=== PATIENT | female | born 1960 | race Caucasian/White ===

== ENCOUNTER 2021-08-13 13:07 | Emergency (ER) | payer BC ==
[~2021-08-13] VITALS: Ht 165.1 cm; Wt 74.0 kg
[2021-08-13] MEDS ORDERED: IV NORMAL SALINE 1,000ML 1,000 ML IV SCH (13:30)
--- NOTE | 2021-08-13 13:34 | PHYS DOC ---
Past History Additional Past Medical Histor: ABD ADHESIONS; CHRONIC PAIN (SUHA THOMPSON APRN) Past Surgical History: Hysterectomy, Oophorectomy, Other Additional Past Surgical Histo: CARDIAC STENT; BILAT HIP REPLACEMENT; BILAT WRIST CYST; PARTIAL PARATHYROID (SUHA THOMPSON APRN) Alcohol Use: Occasionally (SUHA THOMPSON APRN) General Adult EDM: Chief Complaint: ABDOMINAL PAIN HPI: HPI: -year-old female who presents to the emergency department for left lower quadrant abdominal pain that started 4 days ago. She rates her pain 7 out of 10. She states that she is taken laxatives, stool softeners and tramadol at home for the pain. Patient does have a history of chronic abdominal pain and was told that the abdominal pain is due to adhesions from multiple abdominal surgeries for her PCOS. Patient reports that her last bowel movement was yesterday and it was watery. She denies nausea, vomiting, diarrhea, sick exposures, back pain, fevers, travel, blood in her stools or vomit, urinary symptoms. (SUHA THOMPSON APRN) Review of Systems: Review of Systems: Constitutional: See HPI GI: See HPI : See HPI Musculoskeletal: See HPI (SUHA THOMPSON APRN) Allergies: Allergies: Allergies Coded Allergies Type Severity Reaction Last Updated Verified codeine Allergy Unknown Nausea and Vomiting 08/13/21 Yes (SUHA THOMPSON APRN) Physical Exam: PE: Constitutional: Well developed, well nourished, no acute distress, non-toxic appearance. [] HENT: Normocephalic, atraumatic, bilateral external ears normal, oropharynx moist, no oral exudates, nose normal. [] Eyes: PERRL, EOMI, conjunctiva normal, no discharge. [] Neck: Normal range of motion, no stridor Cardiovascular:Heart rate regular rhythm, no murmur [] Lungs & Thorax: Bilateral breath sounds clear to auscultation [] Abdomen: Bowel sounds normal, soft, generalized abdominal tenderness with palpation, no masses, no pulsatile masses. [] Skin: Warm, dry, no erythema, no rash. [] Back: No tenderness, no CVA tenderness. [] Extremities: No tenderness, no cyanosis, no clubbing, ROM intact, no edema. [] Neurologic: Alert and oriented X 3, normal motor function, normal sensory function, no focal deficits noted. [] Psychologic: Affect normal, judgement normal, mood normal. [] (SUHA THOMPSON APRN) Current Patient Data: Labs: Laboratory Tests Test 08/13/21 13:45 White Blood Count 13.1 x10^3/uL Red Blood Count 4.61 x10^6/uL Hemoglobin 14.0 g/dL Hematocrit 42.6 % Mean Corpuscular Volume 92 fL Mean Corpuscular Hemoglobin 30 pg Mean Corpuscular Hemoglobin Concent 33 g/dL Red Cell Distribution Width 13.1 % Platelet Count 199 x10^3/uL Neutrophils (%) (Auto) 79 % Lymphocytes (%) (Auto) 13 % Monocytes (%) (Auto) 8 % Eosinophils (%) (Auto) 0 % Basophils (%) (Auto) 0 % Neutrophils # (Auto) 10.4 x10^3uL Lymphocytes # (Auto) 1.7 x10^3/uL Monocytes # (Auto) 1.0 x10^3/uL Eosinophils # (Auto) 0.0 x10^3/uL Basophils # (Auto) 0.0 x10^3/uL Sodium Level 135 mmol/L Potassium Level 3.9 mmol/L Chloride Level 98 mmol/L Carbon Dioxide Level 30 mmol/L Anion Gap 7 Blood Urea Nitrogen 20 mg/dL Creatinine 1.1 mg/dL Estimated GFR (Cockcroft-Gault) 50.2 BUN/Creatinine Ratio 18 Glucose Level 114 mg/dL Calcium Level 9.5 mg/dL Total Bilirubin 0.9 mg/dL Aspartate Amino Transf (AST/SGOT) 20 U/L Alanine Aminotransferase (ALT/SGPT) 22 U/L Alkaline Phosphatase 79 U/L Total Protein 6.3 g/dL Albumin 3.4 g/dL Albumin/Globulin Ratio 1.2 Lipase 66 U/L Current Medications Medications (Trade) Dose Ordered Sig/Haydee Route PRN Reason Start Time Stop Time Status Last Admin Dose Admin Sodium Chloride 1,000 ml @ 1,000 mls/hr Q1H IV 08/13/21 13:30 08/13/21 14:29 DC 08/13/21 14:00 Fentanyl Citrate (Fentanyl 2ml Vial) 50 mcg 1X ONCE IVP 08/13/21 13:30 08/13/21 13:32 DC Iohexol (Omnipaque 300 Mg/ml) 75 ml 1X ONCE IV 08/13/21 13:45 08/13/21 13:46 DC 08/13/21 13:49 Info (Do NOT chart on this entry -- for MONITORING) 1 each PRN DAILY PRN MC SEE COMMENTS 08/13/21 13:45 08/15/21 13:44 Vital Signs: Vital Signs Date Time Temp Pulse Resp B/P (MAP) Pulse Ox O2 Delivery O2 Flow Rate FiO2 08/13/21 13:17 97.6 66 18 111/66 (81) 97 Room Air (SUHA THOMPSON APRN) EKG: EKG: [] (SUHA THOMPSON APRN) Radiology/Procedures: Radiology/Procedures: []PROCEDURE: CT ABD PELV W/ IV CONTRST ONLY EXAM: Abdomen and pelvis CT with intravenous contrast. HISTORY: Left lower quadrant pain. TECHNIQUE: Computed tomographic images of the abdomen and pelvis were obtained following the administration of intravenous contrast. Multiplanar reformatting was performed. *One or more of the following individualized dose reduction techniques were utilized for this examination: 1. Automated exposure control. 2. Adjustment of the mA and/or kV according to patient size. 3. Use of iterative reconstruction technique. COMPARISON: None. FINDINGS: Evaluation of the lower thorax demonstrates right middle lobe and lingular linear atelectasis or scarring. There is no infiltrate or pleural effusion. The heart is normal in size. No hepatic lesion is seen. There is focal wall thickening involving the gallbladder fundus, measuring approximately 1.6 cm. The pancreas is unremarkable. There are calcified splenic granulomas. The adrenal glands and kidneys are unremarkable. There is no appendicitis. There is a large amount of stool throughout the colon. There is segmental wall thickening involving the distal ascending colon and proximal sigmoid colon. There is surrounding inflammatory stranding. There are a few sigmoid diverticula. The aorta is normal in caliber. There is aortobiiliac atherosclerosis. No pathologically enlarged lymph node is seen. The bladder is unremarkable. There is a small amount of pelvic free fluid. The uterus is absent. There are bilateral hip arthroplasties. There is no acute or suspicious osseous finding. IMPRESSION: 1. Segmental wall thickening with surrounding inflammatory stranding involving the distal descending colon and proximal sigmoid colon. The imaging appearance favors acute colitis of infectious or inflammatory etiologies. The superimposed on a few sigmoid diverticula. 2. Small amount of pelvic free fluid, likely secondary to the aforementioned acute colonic findings. 3. Large amount of colonic stool. Correlate for constipation. 4. Focal wall thickening involving the gallbladder fundus, possibly due to gallbladder adenomyomatosis. Gallbladder sonography may be useful for characterization. Electronically signed by: Kaye Wisdom MD (08/13/2021 2:10 PM) [id number] DICTATED AND SIGNED BY: KAYE WISDOM MD DATE: 08/13/21 1403 CC: JENNIFER HAMITLON MD; SUHA THOMPSON APRN ~MTH0 0 (SUHA THOMPSON APRN) Heart Score: C/O Chest Pain: N/A Risk Factors: Risk Factors: DM, Current or recent (<one month) smoker, HTN, HLP, family history of CAD, obesity. Risk Scores: Score 0 - 3: 2.5% MACE over next 6 weeks - Discharge Home Score 4 - 6: 20.3% MACE over next 6 weeks - Admit for Clinical Observation Score 7 - 10: 72.7% MACE over next 6 weeks - Early Invasive Strategies (SUHA THOMPSON APRN) Course & Med Decision Making: Course & Med Decision Making Pertinent Labs and Imaging studies reviewed. (See chart for details) [] Patient presents to the emergency department for left lower quadrant pain. Work-up in the ER consisted of blood work, urinalysis and CT imaging of her abdomen. Patient was treated with IV fluids and pain medication. Patient is noted to have mild leukocytosis with a white blood cell count of 13. Your CT scan of your abdomen showed constipation and colitis. This will be treated with antibiotics. Patient is able to tolerate oral intake is not reporting any nausea or vomiting. Patient's vital signs are stable. Patient does not report any blood in her stools.. Patient reports that she is not nauseous and does not need any nausea medication. Patient advised to follow-up with her primary care provider tomorrow. I discussed with patient all findings and diagnostic testing as well as the need to follow-up with PCP for further evaluation and treatment or return to the ER if any new or worsening symptoms. Strict return precautions were also discussed at length. Patient voiced understanding and agreement with the plan. Patient is hemodynamically stable at the time of disposition. (SUHA THOMPSON APRN) Dragon Disclaimer: Dragon Disclaimer: This electronic medical record was generated, in whole or in part, using a voice recognition dictation system. (SUHA THOMPSON APRN) Attending Co-Sign The patient was seen and interviewed as well as examined at the bedside. The chart was reviewed. The case was discussed. Agree with the plan of care. (TURNER MALLOY DO) Departure Departure: Impression: Primary Impression: Colitis Disposition: HOME / SELF CARE / HOMELESS Condition: GOOD Referrals: JENNIFER HAMILTON MD (PCP) Patient Instructions: Colitis Additional Instructions: You were seen in the emergency department today for abdominal pain. Your CT scan showed colitis. As we discussed, is unsure if this is viral versus bacterial cause. Therefore we will treat you with an antibiotic. You are being discharged home with 2 antibiotics please take them as directed. Please make sure that you start and finish them completely. Your medication metronidazole will cause severe vomiting if taken with alcohol. You must avoid alcohol use with this medication. Increase your fluids at home. Eating bland foods may also help with your symptoms. We suggest the brat diet which is bananas, rice, applesauce, and toast. You were also noted to have some constipation, you can take MiraLAX daily to help soften your stools. Follow-up with your primary care provider on Monday regarding your ER visit. Return to the emergency department if you develop worsening of your pain, blood in your stools or vomit, intractable nausea or vomiting, high fevers refractory to treatment, weakness, or any new or worsening concerns. Your CT scan of your abdomen showed a benign abnormality of your gallbladder, I have attached the CT report to this discharge paperwork so that you can follow-up with your primary care provider regarding this. EMERGENCY DEPARTMENT GENERAL DISCHARGE INSTRUCTIONS Thank you for coming to [facility] (ED) today and trusting us with you care. We trust that you had a positivie experience in our Emergency Department. If you wish to speak to the department management, you may call the director at [phone]. YOUR FOLLOW UP INSTRUCTIONS ARE FOLLOWS: 1. Do you have a private Doctor? If you do not have a private doctor, please ask for a resource list of physicians or clinics that may be able to assist you with follow up care. 2. The Emergency Physician has interpreted your x-rays. The X-Ray specialist will also review them. If there is a change in the findings, you will be notified in 48 hours when at all possible. 3. A lab test or culture has been done, your results will be reviewed and you will be notified if you need a change in treatment. ADDITIONAL INSTRUCTIONS AND INFORMATION: 1. Your care today has been supervised by a physician who is specially trained in emergency care. Many problems require more than one evaluation for a complete diagnosis and treatment. We recommend that you schedule your follow up appointment as recommended to ensure complete treatment of you illness or injury. If you are unable to obtain follow up care and continue to have a problem, or if your condition worsens, we recommend that you return to the ED. 2. We are not able to safely determine your condition over the phone nor are we able to give sound medical advice over the phone. For these safety reasons, if you call for medical advice we will ask you to come to the ED for further evaluation. 3. If you have any questions regarding these discharge instructions please call the ED at [phone]. SAFETY INFORMATION: In the interest of safety, wellness, and injury prevention; we encourage you to wear your sealbelt, if you smoke; quite smoking, and we encourage family to use a protective helmet for bicycling and other sporting events that present an increased risk for head injury. IF YOUR SYMPTOMS WORSEN OR NEW SYMPTOMS DEVELOP, OR YOU HAVE CONCERNS ABOUT YOUR CONDITION; OR IF YOUR CONDITION WORSENS WHILE YOU ARE WAITING FOR YOUR FOLLOW UP APPOINTMENT; EITHER CONTACT YOUR PRIMARY CARE DOCTOR, THE PHYSICIAN WHOSE NAME AND NUMBER YOU WERE GIVEN, OR RETURN TO THE ED IMMEDIATELY. Scripts Ciprofloxacin Hcl (CIPROFLOXACIN HCL) 500 Mg Tablet 1 TAB PO BID for infection for 10 Days, #20 TAB 0 Refills Prov: SUHA THOMPSON BUSINESS PERFORMANCE ANALYST 08/13/21 Metronidazole (METRONIDAZOLE) 500 Mg Tablet 1 TAB PO TID for infection for 10 Days, #30 TAB 0 Refills Prov: SUHA THOMPSON APRN 08/13/21 SUHA THOMPSON APRN Aug 13, 2021 13:34 TURNER MALLOY DO Aug 13, 2021 17:41
[2021-08-13] MEDS ORDERED: CONTRAST GIVEN. MC PRN (13:45)
[2021-08-13] MEDS ORDERED: IOHEXOL 300 MG/ML 75 ML VIAL. IV ONE (13:45)
[2021-08-13 14:07] LABS: BASO % 0 % (0-3); EOS % 0 % (0-3); HEMATOCRIT 42.6 % (36.0-47.0); LYMPH # 1.7 x10^3/uL (1.0-4.8); LYMPH % 13 % (24-48); MEAN CORPUSCULAR HEMOGLOBIN 30 pg (25-35); MEAN CORPUSCULAR HGB CONC 33 g/dL (31-37); MEAN CORPUSCULAR VOLUME 92 fL (79-100); MONO % 8 % (0-9); NEUT # 10.4 x10^3uL (1.8-7.7); NEUT % 79 % (31-73); PLATELET COUNT 199 x10^3/uL (140-400); RED BLOOD COUNT 4.61 x10^6/uL (3.50-5.40); RED CELL DISTRIBUTION WIDTH 13.1 % (11.5-14.5); WHITE BLOOD COUNT 13.1 x10^3/uL (4.0-11.0)
--- NOTE | 2021-08-13 14:12 | RAD ---
EXAM: Abdomen and pelvis CT with intravenous contrast. HISTORY: Left lower quadrant pain. TECHNIQUE: Computed tomographic images of the abdomen and pelvis were obtained following the administ ration of intravenous contrast. Multiplanar reformatting was performed. *One or more of the following individualized dose reduction techniques were utilized for this examina tion: 1. Automated exposure control. 2. Adjustment of the mA and/or kV according to patient size. 3. Use of iterative reconstruction technique. COMPARISON: None. FINDINGS: Evaluation of the lower thorax demonstrates right middle lobe and lingular linear atelectas is or scarring. There is no infiltrate or pleural effusion. The heart is normal in size. No hepatic l esion is seen. There is focal wall thickening involving the gallbladder fundus, measuring approximate ly 1.6 cm. The pancreas is unremarkable. There are calcified splenic granulomas. The adrenal glands and kidneys are unremarkable. There is no appendicitis. There is a large amount of stool throughout the colon. There is segmental wall thickeni ng involving the distal ascending colon and proximal sigmoid colon. There is surrounding inflammatory stranding. There are a few sigmoid diverticula. The aorta is normal in caliber. There is aortobiiliac atherosclerosis. No pathologically enlarged lym ph node is seen. The bladder is unremarkable. There is a small amount of pelvic free fluid. The uteru s is absent. There are bilateral hip arthroplasties. There is no acute or suspicious osseous finding. IMPRESSION: 1. Segmental wall thickening with surrounding inflammatory stranding involving the distal descending colon and proximal sigmoid colon. The imaging appearance favors acute colitis of infectious or inflam matory etiologies. The superimposed on a few sigmoid diverticula. 2. Small amount of pelvic free fluid, likely secondary to the aforementioned acute colonic findings. 3. Large amount of colonic stool. Correlate for constipation. 4. Focal wall thickening involving the gallbladder fundus, possibly due to gallbladder adenomyomatosi s. Gallbladder sonography may be useful for characterization. Electronically signed by: Kaye Bauman MD (08/13/2021 2:10 PM) [id number]
[2021-08-13 14:16] LABS: CALCIUM 9.5 mg/dL (8.5-10.1); CREATININE 1.1 mg/dL (0.6-1.0); GFR 50.2; POTASSIUM 3.9 mmol/L (3.5-5.1)
[2021-08-13 14:21] LABS: ALBUMIN 3.4 g/dL (3.4-5.0); ALBUMIN/GLOBULIN RATIO 1.2 (1.0-1.7); TOTAL BILIRUBIN 0.9 mg/dL (0.2-1.0); TOTAL PROTEIN 6.3 g/dL (6.4-8.2)
[2021-08-13] MEDS ORDERED: METR-34 PO (14:40)
[2021-08-13] MEDS ORDERED: CIPR500T2 PO (14:40)
[2021-08-13 14:51] VITALS: BP 126/66
== END 2021-08-13 14:51 | disposition home or self-care (01) ==
LOC: ER 13:07
DX: K52.9 Noninfective gastroenteritis and colitis, unspecified (principal); Z88.5 Allergy status to narcotic agent; Z90.710 Acquired absence of both cervix and uterus
CPT/HCPCS: 36415; 74177; 80053; 83690; 85025; 96360; 99285; J7030; Q9967